=== PATIENT | male | born 1955 | race Caucasian/White ===

== ENCOUNTER → 2018-06-11 | Day surgery (SDC) | payer MEDICARE, OTHER ==
[~2018-06-11] MED LIST: ASPI-630 PO; BACL20TA PO; BUPR200T PO; BYSTOLIC5 MG PO; CLON1TAB11 PO; DIVA-53 PO; FEBU80TA2 PO; FOLI1TAB16 PO; GLUC100018 PO; ICOS1CAP PO; IV RINGERS,LACTATED 1000ML 1,000 ML IV SCH; PALI273S IM; PITA4TAB2 PO; RANI300C PO; TAMS0.4C2 PO; TICA90TA PO; UMEC62.5 IH
[2018-06-11 16:07] VITALS: BP 126/76
--- NOTE | 2018-06-11 17:04 | CONS ---
DATE OF CONSULTATION: 06/11/2018 REFERRING PHYSICIAN: Kayden Wang MD. HISTORY OF PRESENT ILLNESS: A 62-year-old male with past medical history significant for heart disease, stenting, PCI, COPD, hypertension, history of colonic polyps, is seen for surveillance exam. Last exam was performed in 2011. No change in bowel habits are noted. No diarrhea, no constipation, no additional complaints. He is, otherwise, in good health. PAST MEDICAL HISTORY: COPD, hypertension, status post stents, history of colonic polyps, arthritis, hyperlipidemia. ALLERGIES: None. MEDICATIONS: Aspirin, baclofen, bupropion, clonazepam, folic acid, glucosamine, Bystolic, Invega, ____, Zantac tamsulosin. SOCIAL HISTORY: Smoker. Social drinker. PAST SURGICAL HISTORY: Status post tonsillectomy and vasectomy. FAMILY HISTORY: Significant for colonic polyps with his mother and colon cancer with his mother. REVIEW OF SYSTEMS: Per records. PHYSICAL EXAMINATION: GENERAL: A well-nourished, well-developed male who is awake, alert, in no acute distress. VITAL SIGNS: Temperature 98.1, pulse 69, respiration is 20. HEENT: Normocephalic and atraumatic head. Pupils and extraocular muscles are not tested. Sclerae anicteric. NECK: Supple. LUNGS: Clear. CARDIOVASCULAR: Reveals an S1, S2 without S3, S4 or appreciable murmur. ABDOMEN: Soft abdomen, normal bowel sounds without appreciable hepatosplenomegaly. EXTREMITIES: Reveals no cyanosis, clubbing, edema. IMPRESSION AND PLAN: Family history of colon cancer. Surveillance exam is recommended at this time. Risks and benefits were discussed with the patient previously, is willing to proceed. BARRON BOBBY MD DR: OSBALDO/zuhair JOB#: [id number] / [id number]
== END | disposition home or self-care (01) ==
LOC: SURG 14:37
PROVIDERS: ATTEND Internal Medicine Gastroenterology
DX: Z12.11 Encounter for screening for malignant neoplasm of colon (principal); K64.0 First degree hemorrhoids; I10 Essential (primary) hypertension; J44.9 Chronic obstructive pulmonary disease, unspecified; E78.5 Hyperlipidemia, unspecified; Z95.5 Presence of coronary angioplasty implant and graft; Z86.010 Personal history of colon polyps; M19.90 Unspecified osteoarthritis, unspecified site; Z98.52 Vasectomy status; Z98.890 Other specified postprocedural states; Z83.71 Family history of colonic polyps; Z80.0 Family history of malignant neoplasm of digestive organs
CPT/HCPCS: 45378; G0105

== ENCOUNTER 2020-09-03 14:15 | Emergency (ER) | payer MEDICARE, OTHER ==
[~2020-09-03] VITALS: Ht 175.3 cm; Wt 79.0 kg
[~2020-09-03 14:15] MED LIST changes: -BUPR200T PO; +BUPR200T3 PO; -CLON1TAB11 PO; +CLONAZEPAM1 MG PO; -IV RINGERS,LACTATED 1000ML 1,000 ML IV SCH
[2020-09-03 14:29] VITALS: BP 134/77
[2020-09-03] MEDS ORDERED: DIPH,PERTUSS(ACELL),TET VAC/PF 0.5 ML SYRINGE. VAX IM ONE (15:15)
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
== END 2020-09-03 16:53 | disposition home or self-care (01) ==
LOC: ER 14:15
DX: S00.83XA Contusion of other part of head, initial encounter (principal); M79.641 Pain in right hand; F17.200 Nicotine dependence, unspecified, uncomplicated; Y04.2XXA Assault by strike against or bumped into by another person, initial encounter; Y93.89 Activity, other specified; Y92.89 Other specified places as the place of occurrence of the external cause; Y99.8 Other external cause status
CPT/HCPCS: 70450; 70486; 72125; 73130; 99285-25